=== PATIENT | male | born 1985 | race Caucasian/White ===

== ENCOUNTER 2019-06-04 13:31 | Emergency (ER) | payer OTHER ==
[~2019-06-04] VITALS: Ht 180.3 cm; Wt 79.4 kg
[~2019-06-04 13:31] MED LIST: NAPROSYN500 MG PO; PROTONIX40 MG PO
== END 2019-06-04 15:54 | disposition home or self-care (01) ==
LOC: ED 13:31
DX: S61.211A Laceration without foreign body of left index finger without damage to nail, initial encounter (principal); S61.213A Laceration without foreign body of left middle finger without damage to nail, initial encounter; F17.200 Nicotine dependence, unspecified, uncomplicated; W26.8XXA Contact with other sharp object(s), not elsewhere classified, initial encounter; Y93.89 Activity, other specified; Y92.89 Other specified places as the place of occurrence of the external cause; Y99.8 Other external cause status